=== PATIENT | female | born 1980 | race Caucasian/White ===

== ENCOUNTER → 2017-07-19 | Outpatient (CLI) | payer MEDICARE, MEDICAID ==
[~2017-07-19] MED LIST: ATIVAN 0.50.5 MG/TAB PO; ATIVAN 1MG T1 MG/TAB PO; BACTRIM DS 8001 TAB PO; BENADRYL50 MG PO; BUSPAR DIVIDOSE15 MG PO; CALCIUM 500 + D1 TA1 PO; CEPHALEXIN500 M1 PO; COMBIRESP IH; COMBIVENT INH14.7 GM IH; CYMBALTA 30MG30 MG PO; CYMBALTA 60MG60 MG PO; DEMADEX100 MG PO; DEPAKOTE 250MG250 MG PO; DEPAKOTE ER 50500 MG PO; DEPAKOTE500 MG PO; DESYREL DIVIDO150 M1 PO; DIFLUCAN 100MG100 MG PO; FLEXERIL5 MG PO; HCTZ 25MG TAB25 MG PO; INDERAL40 MG PO; INDERAL80 MG PO; LEVAQUIN 5500 MG/TA1 PO; LEVOXYL0.112 MG PO; LUNESTA3 MG PO; LYRICA200 MG PO; MOBIC 7.5MG7.5 MG; MULTIPLE VITAMI1 CAP PO; NO HOME MEDICATIONS; NORCO 325 MG-51 TAB PO; NYSTATIN POWDER15 GM TOP; OMNICEF 300MG300 MG PO; PREDNISONE10 MG PO; PRENATAL VITAMI1 TA5 PO; PRILOSEC 20MG20 MG PO; PROAIR HFA0.09 MG/AC IH; PROBIOTIC FORMU1 CAP PO; RESTORIL 1515 MG/CAP PO; ROCALTROL0.5 MCG PO; ROXICODONE 55 MG/TAB PO; SAPHRIS5 MG SL; SEPTRA DS 8001 TAB PO; SEROQUEL 1100 MG/TAB PO; SEROQUEL400 MG PO; SEROQUEL50 MG PO; SYNTHROID 0.10.15 MG PO; SYNTHROID0.112 MG/T PO; TRAMADOL50 MG PO; TYLENOL 325MG325 MG PO; VITAMIN D31000 IU PO; WELLBUTRIN SR200 MG PO; ZITHROMAX500 MG PO; ZOLOFT 100MG100 MG PO; ZOLOFT 25MG25 MG
[2017-07-19 16:34] LABS: BASO # 0.1 (0.0-0.2); BASO % 0.5 % (0.0-2.0); EOS # 0.1 (0.0-0.7); EOS % 0.6 % (0-4.0); GRAN # 7.8 (1.4-6.5); HEMATOCRIT 42.6 % (37.0-47.0); HEMOGLOBIN 14.2 g/dl (12.5-16.0); LYMPH # 4.3 (1.2-3.4); MEAN CELL VOLUME 97 fl (80.0-100.0); MEAN CORPUSCULAR HEMOGLOBIN 32 pg (27.0-31.0); MEAN CORPUSCULAR HGB CONC 33 g/dl (33.0-37.0); MEAN PLATELET VOLUME 10.7 fl (7.4-10.4); MONO # 1.1 (0.1-0.6); MONO % 8.5 % (1.7-9.3); PLATELET COUNT 289 K/mm3 (130-400); RED BLOOD COUNT 4.39 M/mm3 (4.10-5.30); REDCELL DISTRIBUTION WIDTH-CV 13.7 % (11.5-14.5)
[2017-07-19 16:41] LABS: ALBUMIN 4.1 gm/dL (3.5-5.0); BILIRUBIN,TOTAL 0.7 mg/dL (0.0-1.0); CALCIUM 9.3 mg/dL (8.4-10.2); CREATININE, serum 0.66 mg/dL (0.52-1.25); POTASSIUM 4.5 mmol/L (3.4-5.0); TOTAL PROTEIN 7.7 gm/dL (6.4-8.2)
== END ==
LOC: COL.LAB 11:22
PROVIDERS: Family Medicine
DX: R63.4 Abnormal weight loss (principal); R19.7 Diarrhea, unspecified

== ENCOUNTER → 2018-01-30 | Outpatient (CLI) | payer MEDICARE, MEDICAID | LOC: ZCOL.LAB 16:02 | DX: R30.0 Dysuria (principal) ==

== ENCOUNTER → 2018-02-07 | Outpatient (CLI) | payer MEDICARE, MEDICAID ==
[2018-02-07 17:16] LABS: MUCOUS Present /lpf; PH 6 (5-8); URINE APPEARANCE Hazy; URINE BACTERIA Rare /hpf; URINE BILIRUBIN Negative (NEGATIVE); URINE BLOOD Negative (NEGATIVE); URINE COLOR Yellow; URINE GLUCOSE Negative (NEGATIVE); URINE KETONE 1+ (NEGATIVE); URINE LEUKOCYTE ESTERASE Negative (NEGATIVE); URINE NITRATE Negative (NEGATIVE); URINE PROTEIN(semi-quant) 1+ (NEGATIVE); URINE RBC 0-2 /hpf
[2018-02-07 17:18] LABS: COLLECTION METHOD CLEAN CATCH
== END ==
LOC: ZCOL.LAB 16:40
PROVIDERS: Family Medicine
DX: R30.0 Dysuria (principal)